=== PATIENT | female | born 1965 | race Caucasian/White ===

== ENCOUNTER 2018-10-30 05:55 | Day surgery (SDC) | payer OTHER ==
[~2018-10-30 05:55] MED LIST: ANASTROZOLE
== END 2018-10-30 15:46 | disposition home or self-care (01) ==
LOC: CIR.AMB 05:55
DX: L91.0 Hypertrophic scar (principal); E65 Localized adiposity; Z90.13 Acquired absence of bilateral breasts and nipples

== ENCOUNTER 2019-05-25 19:51 | Emergency (ER) | payer OTHER ==
[~2019-05-25] VITALS: Ht 170.2 cm; Wt 68.0 kg
== END 2019-05-26 00:10 | disposition left against medical advice (07) ==
LOC: ER 19:51
DX: Z53.20 Procedure and treatment not carried out because of patient's decision for unspecified reasons (principal)

== ENCOUNTER 2019-11-09 05:55 | Day surgery (SDC) | payer OTHER | END 2019-11-09 16:15 | disposition home or self-care (01) | LOC: CIR.AMB 05:55 | PROVIDERS: Plastic Surgery | PROC: 0HQWXZZ Repair Right Nipple, External Approach (ICD-10-PCS; 2019-11-09) | PROC: 0H0V0JZ Alteration of Bilateral Breast with Synthetic Substitute, Open Approach (ICD-10-PCS; 2019-11-09) | PROC: 0HWU0JZ Revision of Synthetic Substitute in Left Breast, Open Approach (ICD-10-PCS; 2019-11-09) | PROC: 0HWT0JZ Revision of Synthetic Substitute in Right Breast, Open Approach (ICD-10-PCS; 2019-11-09) | PROC: 0HQXXZZ Repair Left Nipple, External Approach (ICD-10-PCS; principal; 2019-11-09 11:45) | DX: N65.1 Disproportion of reconstructed breast (principal); Z90.13 Acquired absence of bilateral breasts and nipples ==